=== PATIENT | female | born 1940 | race Caucasian/White ===

== ENCOUNTER → 2018-03-02 | Outpatient (CLI) | payer MEDICARE | END | disposition home or self-care (01) | LOC: NM 08:52 | DX: K30 Functional dyspepsia (principal); I12.9 Hypertensive chronic kidney disease with stage 1 through stage 4 chronic kidney disease, or unspecified chronic kidney disease; E11.22 Type 2 diabetes mellitus with diabetic chronic kidney disease; N18.3 Chronic kidney disease, stage 3 (moderate); E03.9 Hypothyroidism, unspecified | CPT/HCPCS: 78264; A9541 ==

== ENCOUNTER → 2018-05-04 | Outpatient (CLI) | payer MEDICARE | END | disposition home or self-care (01) | LOC: RT 09:09 | DX: R41.3 Other amnesia (principal) | CPT/HCPCS: 95816 ==

== ENCOUNTER → 2018-05-24 | Outpatient (CLI) | payer MEDICARE | END | disposition home or self-care (01) | LOC: MRI 07:41 | DX: G31.89 Other specified degenerative diseases of nervous system (principal) | CPT/HCPCS: 70551 ==